=== PATIENT | male | born 1990 | race Caucasian/White ===

== ENCOUNTER 2021-03-03 16:21 | Emergency (ER) | payer OTHER ==
[2021-03-03 17:26] VITALS: PULSE 110; O2SAT 96
--- NOTE | 2021-03-03 17:44 | ERPHSYRPT ---
- History of Present Illness Time Seen by Provider: 03/03/21 17:30 Source: patient Exam Limitations: no limitations Patient Subjective Stated Complaint: Left lower leg pain Triage Nursing Assessment: Patient ambulated back to ED and transferred self to bed. Patient A+O X3. Patient's skin pink, warm and dry. Patient states his kitchen floor had recently been waxed causing him to slip and land on his left leg on his living room carpet. Patient complains of intermittent pain when walking 4/10 to left knee and lower leg. Patient has light purple bruise to left knee. Pulses noted. Physician History: Patient is a 30-year-old male presents to our ED with complaints of left knee and leg pain. Patient states he was walking on a waxed floor yesterday. Patient was at home when he slipped and fell onto carpeting. Patient has been experiencing pain since then. He has not taken any pain medication. Patient declined pain medication. No other injuries reported. Pain described as an ache that is well localized. No radiation. Pain worse with ambulation weightbearing. Pain improved with rest. Patient voices no other complaints concerns at this time. Method of Injury: fell Occurred: yesterday Quality: constant, dullness Severity of Pain-Max: moderate Severity of Pain-Current: mild Lower Extremities Pain: knee: left Modifying Factors: Improves With: nothing Associated Symptoms: none Allergies/Adverse Reactions: ibuprofen Allergy (Verified 03/03/21 17:17) Home Medications: Atorvastatin Calcium [Lipitor 20MG Tablet] 1 tab PO DAILY 03/03/21 [History] Metformin HCl 500 mg [Glucophage 500 MG] 1 tab PO DAILY 03/03/21 [History] Hx Influenza Vaccination/Date Given: No Hx Pneumococcal Vaccination/Date Given: No Immunizations Up to Date: Yes Travel Risk - International Travel Have you traveled outside of the country in past 3 weeks: No - Coronavirus Screening Are you exhibiting any of the following symptoms?: No Close contact with a COVID-19 positive Pt in past 14-21 Days: No - Vaccine Status Have you recieved a Covid-19 vaccination: Yes Licensed Appraiser: Moderna - Vaccination Dates Date of 2cond Vaccination (if applicable): December 2020 - Review of Systems Constitutional: No Symptoms, No Fever, No Chills Eyes: No Symptoms Ears, Nose, & Throat: No Symptoms Respiratory: No Symptoms, No Cough, No Dyspnea Cardiac: No Symptoms, No Chest Pain, No Edema, No Syncope Abdominal/Gastrointestinal: No Symptoms, No Abdominal Pain, No Nausea, No Vomiting, No Diarrhea Genitourinary Symptoms: No Symptoms, No Dysuria Musculoskeletal: No Symptoms, No Back Pain, No Neck Pain Skin: No Symptoms, No Rash Neurological: No Symptoms, No Dizziness, No Focal Weakness, No Sensory Changes Psychological: No Symptoms Endocrine: No Symptoms Hematologic/Lymphatic: No Symptoms Immunological/Allergic: No Symptoms All Other Systems: Reviewed and Negative - Past Medical History Pertinent Past Medical History: Yes Neurological History: Other ENT History: No Pertinent History Cardiac History: High Cholesterol Respiratory History: No Pertinent History Endocrine Medical History: Diabetes Type II Musculoskeletal History: No Pertinent History GI Medical History: No Pertinent History History: No Pertinent History Psycho-Social History: No Pertinent History Male Reproductive Disorders: No Pertinent History Other Medical History: hydrocephalus - Past Surgical History Past Surgical History: Yes Neuro Surgical History: Other Cardiac: No Pertinent History Respiratory: No Pertinent History Gastrointestinal: No Pertinent History Genitourinary: No Pertinent History Musculoskeletal: No Pertinent History Male Surgical History: No Pertinent History Other Surgical History: Shunt - Social History Smoking Status: Never smoker Exposure to second hand smoke: Yes Drug Use: none Patient Lives Alone: Yes - Nursing Vital Signs Nursing Vital Signs: Initial Vital Signs Temperature 97.8 F 03/03/21 17:20 Pulse Rate 110 H 03/03/21 17:20 Respiratory Rate 20 03/03/21 17:20 O2 Sat by Pulse Oximetry 96 03/03/21 17:20 Pain Scale Pain Intensity 1 - Physical Exam General Appearance: no apparent distress, alert Eyes, Ears, Nose, Throat Exam: normal ENT inspection, TMs normal, pharynx normal, moist mucous membranes Neck Exam: normal inspection, non-tender, supple, full range of motion Cardiovascular/Respiratory Exam: chest non-tender, normal breath sounds, regular rate/rhythm, heart sounds normal, no respiratory distress Gastrointestinal/Abdominal Exam: non-tender, guarding Back Exam: normal inspection, No vertebral tenderness Hips Exam: bilateral: non-tender, normal inspection, normal range of motion, no evidence of injury Legs Exam: right leg: non-tender, normal inspection, normal range of motion, no evidence of injury, left leg: pain, soft tissue tenderness, swelling, other (Tenderness to palpation along the proximal third of the tibia and onto the t ibial plateau. Overlying soft tissue intact. No ecchymosis. Compartments are soft. Cap refill less than 2 seconds.) Knees Exam: right knee: non-tender, normal inspection, normal range of motion, no evidence of injury, left knee: other (Tenderness palpation lower aspect of knee at the tibial plateau. No involvement of the kneecap. No distal femur pain. Extensor mechanism intact.) Ankle Exam: bilateral ankle: non-tender, normal inspection, normal range of motion, no evidence of injury Foot Exam: right foot: non-tender, normal inspection, normal range of motion, no evidence of injury, bilateral foot: other (Tenderness to palpation over the dorsum of the left foot. Overlying soft tissue intact. No signs of trauma.) Neuro/Tendon Exam: normal sensation, normal motor functions Mental Status Exam: alert, oriented x 3, cooperative Skin Exam: normal color, warm, dry SpO2 Interpretation: normal SpO2: 96 O2 Delivery: Room Air - Course Nursing assessment & vital signs reviewed: Yes - Radiology Exams Foot X-ray Interpretation: Interpreted by me (No fracture or dislocation. No soft tissue abnormalities.) Lower Leg X-ray Interpretation: Interpreted by me (No fractures or dislocations. No soft tissue abnormalities.) Ordered Tests: Active Orders 24 hr Category Date Time Status FOOT (MINIMUM 3 VIEWS) Stat Exams 03/03/21 Taken LOWER LEG Stat Exams 03/03/21 00:00 Taken - Progress Progress: improved Progress Note: Patient reassessed. He feels well. Patient claimed pain medication. X-rays negative for fracture dislocations. No soft tissue abnormalities. Patient is ambulatory. Patient declined crutches. Patient agrees to follow-up with his primary care doctor within 48 hours for reevaluation. Patient voiced no other complaints or concerns at this time. Will discharge home. Portions of this note were created with voice recognition technology. There may be grammatical, spelling, punctuation or sound alike errors 03/03/21 18:09 Counseled pt/family regarding: diagnosis, need for follow-up, rad results - Departure Departure Disposition: Home Clinical Impression: Contusion of leg, left, Fall Condition: Stable Critical Care Time: No Referrals: DARREL CARMONA MD [Primary Care Provider] - Additional Instructions: Discharge/Care Plan ZEE THAYER was seen on 03/03/21 in the Emergency Room. The patient was counseled regarding Diagnosis,Lab results, Imaging studies, need for follow up and when to return to the Emergency Room. Prescriptions given: Discharge Note I have spoken with the patient and/or caregivers. I have explained the patient's condition, diagnosis and treatment plan based on the information available to me at this time. I have answered the patient's and/or caregiver's questions and addressed any concerns. The patient and/or caregivers have as good understanding of the patient's diagnosis, condition and treatment plan as can be expected at this point. The vital signs have been stable. The patient's condition is stable and appropriate for discharge from the emergency department. The patient will pursue further outpatient evaluation with the primary care physician or other designated or consulting physician as outlined in the discharge instructions. The patient and/or caregivers are agreeable to this plan of care and follow-up instructions have been explained in detail. The patient and/or caregivers have received these instruction. The patient/and or caregivers are aware that any significant change in condition or worsening of symptoms should prompt an immediate return to this or the closest emergency department or call 911.
--- NOTE | 2021-03-04 08:40 | XRAY ---
Indication: Pain following fall. Comparison: None 2 view left lower leg demonstrates diffuse soft tissue swelling/edema. No other bony, articular, or soft tissue abnormalities.
--- NOTE | 2021-03-04 08:50 | XRAY ---
Indication: Pain following fall. Comparison: None 3 nonweightbearing views left foot demonstrates tiny posterior heel spur and diffuse soft tissue swelling/edema. No other bony, articular, or soft tissue abnormalities.
== END 2021-03-03 18:44 | disposition home or self-care (01) ==
LOC: ED 16:21
DX: S80.12XA Contusion of left lower leg, initial encounter (principal); M79.662 Pain in left lower leg; W01.0XXA Fall on same level from slipping, tripping and stumbling without subsequent striking against object, initial encounter; Y93.89 Activity, other specified; Y92.89 Other specified places as the place of occurrence of the external cause; E11.9 Type 2 diabetes mellitus without complications
CPT/HCPCS: 73590; 73630; 99283